=== PATIENT | male | born 1950 | race Caucasian/White ===

== ENCOUNTER 2016-08-20 06:53 | Day surgery (SDC) | payer MEDICARE, OTHER ==
--- NOTE | ~2016-08-20 | EGD ---
EGD REPORT [facility] [address] [place] [address] NAME: FRIEDA VARGAS : [birth year] STATUS : REG [facility]#: [id number] AGE: 66 ADM/REG DATE : 08/20/16 MR#: [id number] REPORT SERV DATE: 08/20/16 DICTATED BY: PARAS DARDEN DATE: 08/20/16 REPORT STATUS : Draft TRANSCRIBED BY: [employer] DATE: 08/20/16 [facility] Patient Name: Frieda Vargas Date of : 1950 Attending MD: PARAS DARDEN MD Procedure Date No Time: 08/20/2016 Procedure: Upper GI endoscopy Indications: Dysphagia Referring MD: LARRY CHOI MD Medicines: as per anesthesia Complications: No immediate complications. Procedure: Pre-Anesthesia Assessment: - ASA Grade Assessment: III - A patient with severe systemic disease. After obtaining informed consent, the endoscope was passed under direct vision. Throughout the procedure, the patient's blood pressure, pulse, and oxygen saturations were monitored continuously. The GIF [id number] was introduced through the mouth, and advanced to the third part of duodenum. The upper GI endoscopy was accomplished without difficulty. The patient tolerated the procedure. Findings: Abnormal motility was noted in the esophagus. There is spasticity of the esophageal body. The distal esophagus/lower esophageal sphincter is spastic, but gives up passage to the endoscope. The scope was withdrawn. Dilation was performed with a Ac dilator with no resistance at 48 Fr. A small hiatus hernia was present. The examined duodenum was normal. Impression: - Esophageal motility disorder. - Hiatus hernia. - Normal examined duodenum. Recommendation: - Follow an antireflux regimen. - Continue present medications. Procedure Code(s): --- Professional --- 46242, Esophagogastroduodenoscopy, flexible, transoral; diagnostic, including collection of specimen(s) by brushing or washing, when performed (separate procedure) 56019, Dilation of esophagus, by unguided sound or bougie, single or multiple passes EGD REPORT [facility] [address] [facility] [place]. [address] NAME: FRIEDA VARGAS : [birth year] STATUS : REG [facility] PAT#: [id number] AGE: 66 ADM/REG DATE : 08/20/16 MR#: [id number] REPORT SERV DATE: 08/20/16 DICTATED BY: PARAS DARDEN DATE: 08/20/16 REPORT STATUS : Draft TRANSCRIBED BY: [employer] DATE: 08/20/16 Diagnosis Code(s): --- Professional --- K22.4, Dyskinesia of esophagus K44.9, Diaphragmatic hernia without obstruction or gangrene R13.10, Dysphagia, unspecified CPT copyright 2013 [employer]. All rights reserved. The codes documented in this report are preliminary and upon tourist adviser review may be revised to meet current compliance requirements. PARAS DARDEN MD 08/20/2016 8:50 AM This report has been signed electronically. Number of Addenda: 0 Note Initiated On: 08/20/2016 8:31 AM Scope Withdrawal Time 0 hours 0 minutes 0 seconds [address] [facility] [place] [address]
[~2016-08-20 06:53] MED LIST: ASABAYER PO; ATEN25 PO; CARD120 PO; CINNAMON CAP PO; FISH-EPA1000 MG PO; FLOMAX4 PO; GLUCPH PO; LIPITOR20 PO; LORTAB10 PO; LYRICA100 MG PO; NITROSTAT0.4 MG SL; NORCO1 TA2 PO; NTG150 SL; PRILO PO; PRIN10 PO; VICODIN ES1 TAB PO; VOLT75 PO; WELL100 PO; ZOCOR40 PO
== END 2016-08-20 23:59 | disposition home health service (06) ==
LOC: DMU 06:53
PROVIDERS: Internal Medicine Gastroenterology
PROC: 0DJ08ZZ Inspection of Upper Intestinal Tract, Via Natural or Artificial Opening Endoscopic (ICD-10-PCS; principal; 2016-08-20 08:30)
PROC: 0D750ZZ Dilation of Esophagus, Open Approach (ICD-10-PCS; 2016-08-20 08:30)
DX: K44.9 Diaphragmatic hernia without obstruction or gangrene (principal); E11.9 Type 2 diabetes mellitus without complications; K22.4 Dyskinesia of esophagus; I25.10 Atherosclerotic heart disease of native coronary artery without angina pectoris; I10 Essential (primary) hypertension; E78.00 Pure hypercholesterolemia, unspecified; M19.90 Unspecified osteoarthritis, unspecified site; G62.9 Polyneuropathy, unspecified; Z87.891 Personal history of nicotine dependence; Z90.49 Acquired absence of other specified parts of digestive tract; Z87.442 Personal history of urinary calculi; Z98.890 Other specified postprocedural states
CPT/HCPCS: 82962